=== PATIENT | female | born 1945 | race Caucasian/White ===

== ENCOUNTER 2017-07-17 11:22 | Emergency (ER) | payer MEDICARE, OTHER ==
[~2017-07-17] VITALS: Ht 170.2 cm; Wt 80.4 kg
[2017-07-17 12:08] LABS: HEMOGLOBIN 13.8 g/dL (11.7-16.4); WHITE BLOOD COUNT 7.3 x10^3/uL (3.4-10)
[2017-07-17 12:15] LABS: PATH.CAST-FLAG NOT PRESENT; SPERM-FLAG NOT PRESENT; SRC-FLAG NOT PRESENT; XTAL-FLAG NOT PRESENT; YLC-FLAG NOT PRESENT
[2017-07-17 12:19] LABS: BLOOD UREA NITROGEN 17 mg/dL (7-18)
[2017-07-17 13:21] VITALS: BP 163/87
[2017-07-17] MEDS ORDERED: OMNIPAQUE 350 MG/ML, 100ML BOTTLE ONE (15:00)
== END 2017-07-17 14:50 | disposition home or self-care (01) ==
LOC: ED 13:18
DX: R51 Headache (principal); R11.0 Nausea; J45.909 Unspecified asthma, uncomplicated; K21.9 Gastro-esophageal reflux disease without esophagitis
CPT/HCPCS: 36415; 70450; 70496; 80048; 81001; 82040; 85025; 85610; 85730; 87086; 93005; 99285; Q9967

== ENCOUNTER 2018-03-07 17:33 | Emergency (ER) | payer MEDICARE, OTHER ==
[~2018-03-07] VITALS: Ht 172.7 cm; Wt 81.1 kg
[2018-03-07 17:38] VITALS: BP 148/81
[2018-03-07] MEDS ORDERED: FLUT1DIS3 INH (18:23)
[2018-03-07] MEDS ORDERED: MEPO100V SQ (18:23)
== END 2018-03-07 19:05 | disposition home or self-care (01) ==
LOC: ED 18:59
DX: S63.591A Other specified sprain of right wrist, initial encounter (principal); K21.9 Gastro-esophageal reflux disease without esophagitis; J45.909 Unspecified asthma, uncomplicated; Z85.3 Personal history of malignant neoplasm of breast; W01.0XXA Fall on same level from slipping, tripping and stumbling without subsequent striking against object, initial encounter; Y93.89 Activity, other specified; Y92.098 Other place in other non-institutional residence as the place of occurrence of the external cause; Y99.8 Other external cause status
CPT/HCPCS: 99284

== ENCOUNTER → 2019-03-22 | Outpatient (CLI) | payer MEDICARE, OTHER ==
[~2019-03-22] MED LIST: FLUT1DIS3 INH; MEPO100V SQ
== END | disposition home or self-care (01) ==
LOC: CFH 07:11
PROVIDERS: ATTEND Family Medicine
DX: K82.4 Cholesterolosis of gallbladder (principal); N28.1 Cyst of kidney, acquired
CPT/HCPCS: 76700